=== PATIENT | female | born 1990 | race African-American/Black ===

== ENCOUNTER 2017-12-28 02:26 | Emergency (ER) | payer SELFPAY ==
[~2017-12-28] VITALS: Ht 172.7 cm; Wt 63.5 kg
[2017-12-28] MEDS ORDERED: NKM (02:36)
[2017-12-28] MEDS ORDERED: AMOXICILLIN500 M1 PO (02:49)
[2017-12-28] MEDS ORDERED: MAGIC MOUTH WAS60 ML MM (02:49)
[2017-12-28] MEDS ORDERED: Lidocaine 2% Visc 15ml soln ORAL ONE (03:00)
[2017-12-28 03:04] VITALS: BP 109/71
[2017-12-28 03:11] VITALS: BP 109/71
--- NOTE | 2017-12-28 06:29 | Emergency Room Report ---
History of Present Illness General Chief Complaint: Earache Source: Patient Present Illness HPI Patient is a 27-year-old female who presented after increased left-sided earache as well as sore throat. Patient gradual onset of symptoms. Patient reported having the initially pain to the right side which subsequently became more prominent on the left side. Patient denies any fever. She reports having worsening sore throat she denies any neck stiffness. Allergies: Coded Allergies: No Known Allergies (Unverified , 12/28/17) Patient History Past Medical History: see triage record Last Menstrual Period: 6 months Now: No Reviewed Nursing Documentation: PMH: Agreed; PSxH: Agreed Nursing Documentation-PMH Past Medical History: No Stated History Review of Systems All Other Systems: negative except mentioned in HPI Physical Exam Vital Signs Date Time Temp Pulse Resp B/P (MAP) Pulse Ox O2 Delivery O2 Flow Rate FiO2 12/28/17 02:30 98.4 71 16 113/67 97 Room Air 98.4 General Appearance: well appearing, no apparent distress, alert, GCS 15 Head: normocephalic, atraumatic ENT: hearing grossly normal, normal voice Neck: full range of motion, supple Respiratory: lungs clear, normal breath sounds, no respiratory distress, speaking full sentences Cardiovascular #1: normal peripheral pulses, regular rate, rhythm, no edema Gastrointestinal: normal inspection Musculoskeletal: normal inspection, back normal, no calf tenderness Neurologic: normal inspection, alert, oriented x3, responsive, normal gait Psychiatric: normal inspection, mood/affect normal Skin: no rash Medical Decision Making Diagnostic Impression: Primary Impression: Pharyngitis ER Course Patient presented for earache and sore throat. Differential diagnosis included but was not limited to meningitis, exudative tonsillitis, retropharyngeal abscess, epiglottitis, strep pharyngitis Patient has a benign exam and does not appear to require any further imaging or laboratory testing at this time. Patient was given oral antibiotics. The patient is advised to follow up with primary care doctor in 1-2 days. Patient is advised to return if any worsening condition or if any changes in status that are concerning. This report is dictated with [employer] software which may occasionally lead to discrepancies related to use of this software. Last Vital Signs Date Time Temp Pulse Resp B/P (MAP) Pulse Ox O2 Delivery O2 Flow Rate FiO2 12/28/17 03:11 98.4 72 16 109/71 97 Room Air 98.4 Status: improved Disposition: HOME, SELF-CARE Condition: Stable Scripts Lidocaine HCl (Lidocaine HCl Viscous) 100 Ml Solution 15 ML MM EVERY 4 HOURS, #120 ML Prov: Jose Cuba MD 12/28/17 Amoxicillin (AMOXICILLIN) 500 Mg Tablet 500 MG PO THREE TIMES A DAY, #21 TAB Prov: Jose Cuba MD 12/28/17 Referrals: NOT CHOSEN [facility]/MD,REFERRING (PCP) Patient Instructions: Pharyngitis Jose Cuba MD Dec 28, 2017 06:29
== END 2017-12-28 03:11 | disposition home or self-care (01) ==
LOC: EMR 02:48
DX: J02.9 Acute pharyngitis, unspecified (principal)
CPT/HCPCS: 99284

== ENCOUNTER 2018-07-30 16:39 | Emergency (ER) | payer BC ==
[~2018-07-30] VITALS: Ht 172.7 cm; Wt 67.6 kg
[~2018-07-30 16:39] MED LIST: AMOXICILLIN500 M1 PO; MAGIC MOUTH WAS60 ML MM; NKM
--- NOTE | 2018-07-30 17:05 | NUR ---
ED Nurse Note: patient ambulated to the ED c/o low back pain increasing, somewhat worsening lower back pain. Denies any prior medical history. a/o x4.
[2018-07-30 17:33] LABS: APPEARANCE,URINE SLIGHTLY CLOUDY; BILIRUBIN, URINE NEGATIVE (NEGATIVE); COLOR,URINE PALE YELLOW; GLUCOSE, URINE (UA) NEGATIVE (NEGATIVE); KETONES,URINE 3+ (NEGATIVE); LEUKOCYTE ESTERASE ,URINE NEGATIVE (NEGATIVE); NITRITE,URINE NEGATIVE (NEGATIVE); PH,URINE 6 (4.5-8.0); PROTEIN,URINE NEGATIVE (NEGATIVE); UROBILINOGEN,URINE NORMAL MG/DL (0.0-1.0)
[2018-07-30] MEDS ORDERED: CYCLOBENZAPRINE10 MG ORAL (17:53)
--- NOTE | 2018-07-30 18:10 | Emergency Room Report ---
History of Present Illness General Chief Complaint: Lower Back Pain or Injury Source: Patient Present Illness HPI Patient is a 28-year-old female presented after increased low back pain. Patient had gradual onset of symptoms. She reports having recent upper respiratory symptoms approximately 2 days prior to arrival where she states she had some nasal congestion and sore throat which resolved fairly quickly. She denies any current sore throat. She reports having somewhat worsening lower back pain. Patient had prior history of similar type symptoms. Denies any prior medical history. Allergies: Coded Allergies: No Known Allergies (Unverified , 12/28/17) Patient History Past Medical History: see triage record Now: No Reviewed Nursing Documentation: PMH: Agreed; PSxH: Agreed Nursing Documentation-PMH Past Medical History: No Stated History Review of Systems All Other Systems: negative except mentioned in HPI Physical Exam Vital Signs Date Time Temp Pulse Resp B/P (MAP) Pulse Ox O2 Delivery O2 Flow Rate FiO2 07/30/18 16:55 99.0 71 18 112/71 97 Room Air General Appearance: well appearing, no apparent distress, alert, GCS 15 Head: normocephalic, atraumatic ENT: hearing grossly normal, normal voice Neck: full range of motion, supple Respiratory: no respiratory distress, speaking full sentences Cardiovascular #1: normal inspection, normal peripheral pulses, regular rate, rhythm Gastrointestinal: normal inspection, normal bowel sounds, non tender, soft Musculoskeletal: normal inspection, back normal, digits/nails normal, gait/ station normal, normal range of motion Neurologic: normal inspection, alert, oriented x3, responsive, ribbon cutter III-XII nml as tested, normal gait Psychiatric: mood/affect normal Skin: no rash Medical Decision Making Diagnostic Impression: Primary Impression: Low back pain ER Course Patient presented for back pain. Differential diagnosis include was not limited to pyelonephritis, sciatica, ovarian torsion, viral infection among others. Patient has a benign exam and does not appear to require any further imaging or laboratory testing at this time. Laboratory testing I does not appear to be indicated and patient shows no evidence of acute compromise of her low back. Urinalysis showed no evidence of infection. Patient was noted to have pain which is consistent with a musculoskeletal pain. Patient does not appear to require CT imaging at this time she was advised outpatient follow-up with her primary care physician states that she currently has an appointment Labs Test 07/30/18 17:01 Urine Color Pale yellow Urine Appearance Slightly cloudy Urine pH 6 (4.5-8.0) Urine Specific [place] 1.015 (1.005-1.035) Urine Protein Negative (NEGATIVE) Urine Glucose (UA) Negative (NEGATIVE) Urine Ketones 3+ (NEGATIVE) Urine Blood 1+ (NEGATIVE) Urine Nitrite Negative (NEGATIVE) Urine Bilirubin Negative (NEGATIVE) Urine Urobilinogen Normal MG/DL (0.0-1.0) Urine Leukocyte Esterase Negative (NEGATIVE) Urine RBC 2-4 /HPF (0 - 2) Urine WBC 0-2 /HPF (0 - 2) Urine Squamous Epithelial Cells Few /LPF (NONE/OCC) Urine Bacteria Few /HPF (NONE) Urine HCG, Qualitative Negative (NEGATIVE) EKG Diagnostic Results Rate: normal Rhythm: NSR ST Segments: no acute changes Rhythm Strip Diag. Results EP Interpretation: yes Rhythm: NSR, no PVC's, no ectopy Last Vital Signs Date Time Temp Pulse Resp B/P (MAP) Pulse Ox O2 Delivery O2 Flow Rate FiO2 07/30/18 16:55 99.0 71 18 112/71 97 Room Air Status: improved Disposition: HOME, SELF-CARE Condition: Stable Scripts Cyclobenzaprine Hcl* (FLEXERIL*) 10 Mg Tablet 10 MG ORAL TID PRN for Muscle Spasm, #20 TAB Prov: Jose Cuba MD 07/30/18 Patient Instructions: Back Pain, Adult Joes Cuba MD Jul 30, 2018 18:10
--- NOTE | 2018-07-30 18:10 | NUR ---
ED Nurse Note: patient is being discharged, cleared by Dr. Cuba. ID band removed. discharge instructions/prescription given patient verbalized understanding, signed paper. patient ambulated out of ED with steady gait.
[2018-07-30 18:48] VITALS: BP 112/71
[2018-07-30 18:55] VITALS: BP 112/71
== END 2018-07-30 18:10 | disposition home or self-care (01) ==
LOC: EMR 17:44
DX: M54.5 Low back pain (principal)
CPT/HCPCS: 81003; 81025; 99283